=== PATIENT | female | born 1995 | race Caucasian/White ===

== ENCOUNTER 2022-08-13 08:55 | Emergency (ER) | payer OTHER ==
[~2022-08-13] VITALS: Ht 170.2 cm; Wt 63.5 kg
== END 2022-08-13 11:55 | disposition home or self-care (01) ==
LOC: ER 08:55
DX: M62.838 Other muscle spasm (principal); G43.909 Migraine, unspecified, not intractable, without status migrainosus

== ENCOUNTER 2022-08-18 10:04 | Outpatient (CLI) | payer OTHER | END 2022-08-18 10:09 | disposition home or self-care (01) | LOC: RAD 10:04 | DX: R51.9 Headache, unspecified (principal); R10.2 Pelvic and perineal pain ==

== ENCOUNTER 2023-02-01 11:37 | Outpatient (CLI) | payer OTHER | END 2023-02-01 11:39 | disposition home or self-care (01) | LOC: RAD 11:37 | PROVIDERS: ATTEND Family Medicine | DX: M25.572 Pain in left ankle and joints of left foot (principal) ==